=== PATIENT | male | born 1965 | race Caucasian/White ===

== ENCOUNTER → 2016-05-21 | Outpatient (CLI) | payer MEDICARE ==
[~2016-05-21] MED LIST: ATORVASTATIN CA80 MG PO; CARVEDILOL25 MG PO; CLONIDINE HCL0.3 MG PO; COREG 25MG TAB25 MG PO; DOCUSATE CALCI240 MG PO; FEOSOL325 MG PO; FUROSEMIDE80 MG PO; GENERLAC10 GM/15 M PO; HUMALOG100 UNIT/1 SQ; LASIX40 MG PO; LEVAQUIN500 MG PO; LEVEMIR FL100 UNIT/1 SQ; LEVEMIR100 UNIT/1 SC; LEVOFLOXACIN500 MG PO; LEVOTHYROXINE50 MCG PO; LIPITOR TAB 2020 MG PO; NEPRO CARB ST1000 ML PO; NEURONTIN 300300 MG PO; NEURONTIN600 MG PO; NORVASC 5 MG TAB5 MG PO; NOVOLOG100 UNIT/1 SC; OXYCODONE HCL10 MG PO; PERCOCET 10-321 EACH PO; PHOSLO667 MG PO; POTASSIUM CHLO20 ME1 PO; RENAGEL800 MG PO; RENO CAPS SOFTGE1 MG PO; SYNTHROID50 MCG PO; TESSALON PERLE100 MG PO; VIBRAMYCIN100 MG PO; VITAMIN D50000 UNIT PO
== END ==
LOC: KOH-I 05-17 08:30 → EMI 14:07 → KOH-I 14:30
DX: M81.0 Age-related osteoporosis without current pathological fracture (principal); Z88.8 Allergy status to other drugs, medicaments and biological substances; Z88.5 Allergy status to narcotic agent
CPT/HCPCS: 73718

== ENCOUNTER → 2016-05-23 | Outpatient (CLI) | payer MEDICARE ==
[2016-05-23 13:54] LABS: HEMOGLOBIN 8.9 gm/dl (14.0-17.5); RED BLOOD COUNT 3.25 M/UL (4.20-5.50); WHITE BLOOD COUNT 10.9 K/UL (4.5-11.0)
== END ==
LOC: OPSV2 13:05
PROVIDERS: Orthopaedic Surgery
DX: Z01.810 Encounter for preprocedural cardiovascular examination (principal); Z01.812 Encounter for preprocedural laboratory examination; I10 Essential (primary) hypertension; E11.9 Type 2 diabetes mellitus without complications; Z99.2 Dependence on renal dialysis; N28.9 Disorder of kidney and ureter, unspecified; Z79.4 Long term (current) use of insulin
CPT/HCPCS: 36415; 80048; 85025; 93005

== ENCOUNTER 2016-05-27 09:42 | Day surgery (SDC) | payer MEDICARE ==
[~2016-05-27 09:42] MED LIST changes: -VIBRAMYCIN100 MG PO
[2016-05-27 11:07] LABS: HEMOGLOBIN 9.6 gm/dl (14.0-17.5); RED BLOOD COUNT 3.44 M/UL (4.20-5.50); WHITE BLOOD COUNT 10.9 K/UL (4.5-11.0)
[2016-05-27] MEDS ORDERED: PERCOCET 10-321 EACH PO (16:16)
[2016-05-27] MEDS ORDERED: VIBRAMYCIN100 MG PO (16:17)
== END 2016-05-27 16:00 | disposition home or self-care (01) ==
LOC: OR 09:42 → UNDOADMIN 09:42 → ZEROF 09:42 → OR 16:00 → EDSTATUS 19:00
PROVIDERS: Orthopaedic Surgery
PROC: 0J9P0ZZ Drainage of Left Lower Leg Subcutaneous Tissue and Fascia, Open Approach (ICD-10-PCS; principal; 2016-05-27 19:00)
DX: T87.44 Infection of amputation stump, left lower extremity (principal); E78.5 Hyperlipidemia, unspecified; E07.9 Disorder of thyroid, unspecified; Z99.2 Dependence on renal dialysis; Z88.5 Allergy status to narcotic agent; Z88.8 Allergy status to other drugs, medicaments and biological substances; Z79.4 Long term (current) use of insulin; I12.9 Hypertensive chronic kidney disease with stage 1 through stage 4 chronic kidney disease, or unspecified chronic kidney disease; E11.22 Type 2 diabetes mellitus with diabetic chronic kidney disease; N18.4 Chronic kidney disease, stage 4 (severe); H54.11 Blindness, right eye, low vision left eye; F41.9 Anxiety disorder, unspecified; F32.9 Major depressive disorder, single episode, unspecified; D64.9 Anemia, unspecified; H26.9 Unspecified cataract; Z82.49 Family history of ischemic heart disease and other diseases of the circulatory system; Z83.3 Family history of diabetes mellitus; Z80.9 Family history of malignant neoplasm, unspecified
CPT/HCPCS: 36415; 80048; 82962; 85027; 86140; 86850; 86900; 86901; 87070; 87077; 87186; 87205; J0690; J1815; J7030; J7120

== ENCOUNTER → 2016-08-20 | Outpatient (CLI) | payer MEDICARE ==
[~2016-08-20] MED LIST changes: +VIBRAMYCIN100 MG PO
== END ==
LOC: KOH-I 11:45
DX: T84.54XA Infection and inflammatory reaction due to internal left knee prosthesis, initial encounter (principal)
CPT/HCPCS: 73721

== ENCOUNTER → 2016-08-23 | Outpatient (CLI) | payer MEDICARE | LOC: LAB 13:22 | DX: N18.6 End stage renal disease (principal) | CPT/HCPCS: 36415; 80202 ==

== ENCOUNTER → 2016-09-02 | Outpatient (CLI) | payer MEDICARE | LOC: LAB 15:22 | DX: L03.119 Cellulitis of unspecified part of limb (principal) | CPT/HCPCS: 36415; 80202 ==

== ENCOUNTER → 2016-09-11 | Outpatient (CLI) | payer MEDICARE | LOC: LAB 12:08 | DX: N18.6 End stage renal disease (principal) | CPT/HCPCS: 36415; 80202 ==